=== PATIENT | male | born 1965 | race Caucasian/White ===

== ENCOUNTER → 2020-07-13 | Outpatient (CLI) | payer OTHER ==
[2020-07-13 15:39] LABS: HEMATOCRIT 43.3 % (37.9-51.0); HEMOGLOBIN 15.1 g/dL (13.5-17.0); MEAN CORPUSCULAR HEMOGLOBIN 34.1 pg (27.0-33.4); MEAN CORPUSCULAR VOLUME 98 fl (80-97); PLATELET COUNT 194 10^3/uL (150-450); RED BLOOD COUNT 4.44 10^6/uL (4.35-5.55); RED CELL DISTRIBUTION WIDTH 12.5 % (11.5-14.0); WHITE BLOOD COUNT 6.3 10^3/uL (4.0-10.5)
[2020-07-13 16:09] LABS: ALKALINE PHOSPHATASE 87 U/L (38-126); ANION GAP 10 (5-19); ASPARTATE AMINO TRANSFERASE 48 U/L (17-59); BILIRUBIN,DIRECT 0.4 mg/dL (0.0-0.4); BILIRUBIN,TOTAL 0.6 mg/dL (0.2-1.3); BLOOD UREA NITROGEN 14 mg/dL (7-20); CALCIUM 8.6 mg/dL (8.4-10.2); CARBON DIOXIDE 23 mmol/L (22-30); CHLORIDE 103 mmol/L (98-107); GLUCOSE 149 mg/dL (75-110); TOTAL PROTEIN 6.7 g/dL (6.3-8.2)
== END ==
LOC: OD 14:18
PROVIDERS: ATTEND Nurse Practitioner
DX: I10 Essential (primary) hypertension (principal); E78.2 Mixed hyperlipidemia; R35.0 Frequency of micturition
CPT/HCPCS: 36415; 80053; 84153; 84443; 85027

== ENCOUNTER 2020-08-21 10:18 | Emergency (ER) | payer OTHER ==
[2020-08-21] MEDS ORDERED: OXYCODONE-ACETAMINOPHEN 5-325 MG TABLET PO ONE (10:46)
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
--- NOTE | 2020-08-21 11:29 | RADIOLOGY REPORT (SQ) ---
EXAM DESCRIPTION: FEMUR RIGHT IMAGES COMPLETED DATE/TIME: 08/21/2020 11:12 am REASON FOR STUDY: wire through the thigh COMPARISON: None. NUMBER OF VIEWS: Two views. TECHNIQUE: Two radiographic images acquired of the right femur to include hip and knee in at least o ne projection. LIMITATIONS: None. Curvilinear metallic radiodensity overlies distal anterior thigh and femur FINDINGS: MINERALIZATION: Normal. BONES: No definite fracture. No worrisome bone lesions. SOFT TISSUES: Curvilinear metallic density measuring 4.5 mm in maximal diameter overlies distal anter ior thigh subcutaneous tissues and distal femur. OTHER: Vascular calcifications. IMPRESSION: Curvilinear metallic radiodensity overlies distal anterior thigh and femur compatible fo reign body. No fracture identified although cortical penetration suspected. TECHNICAL DOCUMENTATION: JOB ID: [id number] 2010 [employer]- All Rights Reserved Reading location - IP/workstation name: [email or web address]
--- NOTE | 2020-08-21 11:31 | RADIOLOGY REPORT (SQ) ---
EXAM DESCRIPTION: KNEE RIGHT 4 VIEWS IMAGES COMPLETED DATE/TIME: 08/21/2020 11:12 am REASON FOR STUDY: wire through the thigh COMPARISON: None. NUMBER OF VIEWS: Four views. TECHNIQUE: AP, lateral, and both oblique radiographic images acquired of the right knee. LIMITATIONS: None. FINDINGS: MINERALIZATION: Normal. BONES: No acute fracture or dislocation. No worrisome bone lesions. JOINT: No effusion. SOFT TISSUES: Curvilinear metallic radiodensity measuring 4.5 mm in diameter overlies distal anterior thigh and lateral femur on all projections. OTHER: Subcutaneous gas. Vascular calcifications. IMPRESSION: Curvilinear metallic radiodensity overlies distal thigh and femur on all projections com patible with foreign body. No fracture identified however cortical penetration suspected. TECHNICAL DOCUMENTATION: JOB ID: [id number] 2010 [employer]- All Rights Reserved Reading location - IP/workstation name: [email or web address]
[2020-08-21] MEDS ORDERED: DIPH/PERTUSS(ACELL)/TETANUS VAC/PF 0.5 ML SYR (>=10YO) IM ONE (12:43)
[2020-08-21] MEDS ORDERED: NORMAL SALINE 1000 ML 1,000 ML IV ONE (12:44)
[2020-08-21] MEDS ORDERED: MORPHINE SULFATE 10 MG/ML INJ IV ONE (12:44)
[2020-08-21] MEDS ORDERED: ONDANSETRON HCL INJ/PF 4 MG/2 ML SDV IV ONE ×2 (12:45→13:46)
[2020-08-21] MEDS ORDERED: PIPERACILLIN/TAZOBACTAM 3.375 GM VIAL IV ONE (12:48)
[2020-08-21 13:04] LABS: ABSOLUTE BASOPHILS # (AUTO) 0.1 10^3/uL (0.0-0.2); ABSOLUTE EOSINOPHILS # (AUTO) 0.2 10^3/uL (0.0-0.6); ABSOLUTE LYMPHOCYTES (AUTO) 1.9 10^3/uL (0.5-4.7); ABSOLUTE NEUT (AUTO) 5.2 10^3/uL (1.7-8.2); BASOPHILS % (AUTO) 1.3 % (0-2); EOSINOPHILS % (AUTO) 2.6 % (0-6); HEMOGLOBIN 14.7 g/dL (13.5-17.0); LYMPHOCYTES % (AUTO) 22.9 % (13-45); MEAN CORPUSCULAR HEMOGLOBIN 33.8 pg (27.0-33.4); MEAN CORPUSCULAR HGB CONC 35.1 g/dL (32.0-36.0); MEAN CORPUSCULAR VOLUME 96 fl (80-97); MONOCYTES % (AUTO) 11.6 % (3-13); PLATELET COUNT 171 10^3/uL (150-450); RED BLOOD COUNT 4.36 10^6/uL (4.35-5.55); RED CELL DISTRIBUTION WIDTH 12.7 % (11.5-14.0); SEGMENTED NEUTROPHILS % (AUTO) 61.6 % (42-78); TOTAL CELLS COUNTED % (AUTO) 100 %; WHITE BLOOD COUNT 8.4 10^3/uL (4.0-10.5)
[2020-08-21 13:27] LABS: ALBUMIN 4.2 g/dL (3.5-5.0); ALKALINE PHOSPHATASE 97 U/L (38-126); ANION GAP 9 (5-19); ASPARTATE AMINO TRANSFERASE 54 U/L (17-59); BILIRUBIN,DIRECT 0.3 mg/dL (0.0-0.4); BILIRUBIN,TOTAL 0.5 mg/dL (0.2-1.3); BLOOD UREA NITROGEN 21 mg/dL (7-20); CALCIUM 9.1 mg/dL (8.4-10.2); CARBON DIOXIDE 27 mmol/L (22-30); CHLORIDE 102 mmol/L (98-107); GLUCOSE 100 mg/dL (75-110); POTASSIUM 4.4 mmol/L (3.6-5.0); TOTAL PROTEIN 6.9 g/dL (6.3-8.2)
--- NOTE | 2020-08-21 13:43 | RADIOLOGY REPORT (SQ) ---
EXAM DESCRIPTION: CT RT LOWER EXTREMITY WITHOUT IMAGES COMPLETED DATE/TIME: 08/21/2020 1:12 pm REASON FOR STUDY: foreign body wire penetrated in bone COMPARISON: Same day radiograph TECHNIQUE: CT scan of the right femur performed without intravenous or oral contrast. Images review ed with soft tissue and bone windows. Reconstructed coronal and sagittal MPR images reviewed. All i mages stored on PACS. All CT scanners at this facility use dose modulation, iterative reconstruction, and/or weight based d osing when appropriate to reduce radiation dose to as low as reasonably achievable (ALARA). [facility]: Dose Right [facility]: CareDose [facility]: Dose Right [facility]: Teradose 4D [facility]: Xenith RADIATION DOSE: CT Rad equipment meets quality standard of care and radiation dose reduction techniq ues were employed. CTDIvol: 4.1 mGy. DLP: 98 mGy-cm. mGy. LIMITATIONS: None. FINDINGS: BONES: There is a curvilinear metallic density extending into the lateral femoral metaphys is by approximately 10 mm. No additional evidence of acute bony abnormality. No suspicious osseous lesions. SOFT TISSUES: Foreign body traverses lateral patellar retinaculum. Few punctate foci of subcutaneous gas. No significant hematoma. No close proximity to major neurovascular bundles. OTHER: No other significant finding. IMPRESSION: 1. Metallic linear foreign body extending to the lateral femoral metaphysis by approxim ately 10 mm. 2. No significant soft tissue hematoma. No close proximity to major neurovascular structures. TECHNICAL DOCUMENTATION: JOB ID: [id number] Quality ID # [id number]: Final reports with documentation of one or more dose reduction techniques (e.g., Au tomated exposure control, adjustment of the mA and/or kV according to patient size, use of iterative reconstruction technique) 2010 [employer]- All Rights Reserved Reading location - IP/workstation name: [email or web address]
[2020-08-21] MEDS ORDERED: HYDROMORPHONE HCL INJ/PF 2 MG/ML AMPULE IV ONE (13:45)
[2020-08-21] MEDS ORDERED: FENTANYL CITRATE INJ/PF 100 MCG/2 ML AMPUL IV ONE (14:09)
--- NOTE | 2020-08-21 15:02 | RADIOLOGY REPORT (SQ) ---
EXAM DESCRIPTION: KNEE RIGHT 2 VIEWS IMAGES COMPLETED DATE/TIME: 08/21/2020 2:50 pm REASON FOR STUDY: post FB removal COMPARISON: Same day CT, radiograph NUMBER OF VIEWS: Two views. TECHNIQUE: AP and lateral radiographic images acquired of the right knee. LIMITATIONS: None. FINDINGS: MINERALIZATION: Normal. BONES: No acute fracture or dislocation. No worrisome bone lesions. Interval removal of previous de scribed foreign body. JOINT: No effusion. SOFT TISSUES: Scattered subcutaneous gas. No retained foreign body. OTHER: No other significant finding. IMPRESSION: Interval removal of previously described foreign body. No retained radiopaque fragments . TECHNICAL DOCUMENTATION: JOB ID: [id number] 2010 [employer]- All Rights Reserved Reading location - IP/workstation name: [email or web address]
--- NOTE | 2020-08-21 15:54 | ER Document Report ---
Entered by AZUCENA PICKARD SCRIBE 08/21/20 1244 Acting as scribe for:NICHOL REDMOND MD ED Extremity Problem, Lower - General Chief Complaint: Leg Injury Stated Complaint: WIRE LODGED IN RIGHT LEG Time Seen by Provider: 08/21/20 10:37 Primary Care Provider: LORIN FERRELL FNP [Primary Care Provider] - Follow up as needed JUMA OWEN MD [ACTIVE STAFF] - Follow up in 1 week Mode of Arrival: Wheelchair Information source: Patient Notes: This 55 year old male patient presents to the ED today for evaluation of a piece of metal wire lodged into his right knee/thigh area that occurred this morning. Patient states that a "lawnmower went by and the wire kicked out by me while I was weed whacking." He reports that he tried to remove the wire prior to arrival without success. He reports 5/5 pain and states that his tetanus is not up to date. Last meal was a biscuit around 0800 this morning. No blood thinners. - Related Data Allergies/Adverse Reactions: No Known Allergies Allergy (Verified 08/21/20 11:10) Home Medications: atorvastatin Past Medical History - General Information source: Patient - Social History Smoking Status: Current Every Day Smoker Chew tobacco use (# tins/day): No Smoking Education Provided: No Frequency of alcohol use: Occasional Drug Abuse: None Lives with: Family Family History: Reviewed & Not Pertinent Patient has suicidal ideation: No Patient has homicidal ideation: No - Past Medical History Cardiac Medical History: Reports: Hx Hypercholesterolemia, Hx Hypertension Past Surgical History: Reports: None Review of Systems - Review of Systems Constitutional: No symptoms reported EENT: No symptoms reported Cardiovascular: No symptoms reported Respiratory: No symptoms reported Gastrointestinal: No symptoms reported Genitourinary: No symptoms reported Male Genitourinary: No symptoms reported Musculoskeletal: See HPI Skin: See HPI Hematologic/Lymphatic: No symptoms reported Neurological/Psychological: No symptoms reported -: Yes All other systems reviewed and negative Physical Exam - Vital signs Vitals: Temp Pulse Resp BP Pulse Ox 97.7 F 70 16 175/83 H 98 08/21/20 10:25 08/21/20 10:25 08/21/20 10:25 08/21/20 10:25 08/21/20 10:25 - General General appearance: Alert - HEENT Head: Normocephalic, Atraumatic Eyes: Normal Pupils: PERRL - Respiratory Respiratory status: No respiratory distress Chest status: Nontender Breath sounds: Normal Chest palpation: Normal - Cardiovascular Rhythm: Regular Heart sounds: Normal auscultation Murmur: No Friction rub: No Gallop: None auscultated - Abdominal Inspection: Obese Distension: No distension Bowel sounds: Normal Tenderness: Nontender - Abdomen soft Organomegaly: No organomegaly - Back Back: Normal, Nontender - Extremities General upper extremity: Normal inspection General lower extremity: Other - Neurological Neuro grossly intact: Yes Orientation: AAOx4 [place] Coma Scale Eye Opening: Spontaneous [place] Coma Scale Verbal: Oriented [place] Coma Scale Motor: Obeys Commands [place] Coma Scale Total: 15 - Psychological Associated symptoms: Normal affect, Normal mood - Skin Skin Temperature: Warm Skin Moisture: Dry Skin Color: Normal Course - Re-evaluation Re-evalutation: 08/21/20 15:41 Patient resting comfortably at this time. Still has some pain when fully flexing right knee. 08/21/20 15:48 Earlier today Case had been discussed with Dr. Owen who recommended that foreign body should be removed using needle drivers. And that Dr. Owen would follow-up with patient as an outpatient in 1 week. - Vital Signs Vital signs: Temp Pulse Resp BP Pulse Ox 98.0 F 58 L 16 167/88 H 99 08/21/20 16:12 08/21/20 16:12 08/21/20 16:12 08/21/20 16:12 08/21/20 16:12 08/21/20 15:42 Vital signs stable. Blood pressure is 156/91 patient does have history of hypertension. - Laboratory Result Diagrams: 08/21/20 12:48 08/21/20 12:48 Laboratory results interpreted by me: 08/21/20 08/21/20 12:48 12:48 [facility] 33.8 H BUN 21 H ALT 66 H Laboratories show mild elevation in ALT of 66 and a BUN 21 otherwise within normal range. - Diagnostic Test Radiology reviewed: Image reviewed, Reports reviewed Radiology results interpreted by me: 08/21/20 15:14 Femur X-Ray 08/21/20 10:46 IMPRESSION: Curvilinear metallic radiodensity overlies distal anterior thigh and femur compatible foreign body. No fracture identified although cortical penetration suspected. Knee X-Ray 08/21/20 10:46 IMPRESSION: Curvilinear metallic radiodensity overlies distal thigh and femur on all projections compatible with foreign body. No fracture identified however cortical penetration suspected. Lower Extremity CT 08/21/20 12:33 IMPRESSION: 1. Metallic linear foreign body extending to the lateral femoral metaphysis by approximately 10 mm. 2. No significant soft tissue hematoma. No close proximity to major neurovascular structures. Knee X-Ray 08/21/20 14:34 IMPRESSION: Interval removal of previously described foreign body. No retained radiopaque fragments. 08/21/20 15:42 Plain film x-ray shows a curvilinear metal radiodensity in the distal anterior thigh and femur consistent with foreign body. There was no fracture noted. Knee x-ray shows same discussion of a metallic radiodensity curvilinear foreign body distal femur again no fracture noted however cortical penetration was suspected. CT scan of the right lower extremity show that this foreign metallic body extended into the lateral femoral metaphysis by approximately 10 mm. - Consults Dr. Juma Owen, Orthopedist Time consulted: 14:00 Procedures - Additional Procedures Foreign Body Removal Time performed: 14:30 Notes: 08/21/20 15:39 Foreign body removal right knee area. Area was cleaned with Betadine around the foreign body wire that was impaled from the lateral direction to the lower femur just above the knee. This wire metal wire was impaled into the lower femur about 10 mm into the cortex. Patient was given IV fentanyl for sedation. Patient tolerated procedure well and was able to remove completely the metal wire. ((Post read post removal x-ray shows no foreign body still present.) Using a longitudinal traction countertraction was able to remove the foreign body wire with nail drivers. Area was then irrigated with saline. Patient able to move his knee flex and extend his knee at this time. Neurovascular motor intact. No complications noted at this time. 08/21/20 15:41 Discharge - Discharge Clinical Impression: Acute foreign body of right thigh, Foreign body impaled right lower femur, Puncture wound of right lower leg with complication Condition: Stable Disposition: HOME, SELF-CARE Additional Instructions: Puncture Wound You have a puncture wound. Because these wounds often penetrate deeply beneath the skin, you must observe them carefully for complications. The wound has been examined for retained foreign material and for damage to tendons and nerves. The area should be rested and elevated for 24 hours. Then you can use the injured part -- if moving it is painfree. Punctures of the hand or foot may require splinting or crutches. The dressing should be changed daily until the wound is healed. Watch for signs of infection. Call the doctor immediately if redness, swelling, warmth, increasing pain, or wound drainage occur. If you develop numbness, persistent bleeding, or inability to move the injured area, please return for prompt re-evaluation. As you know a dirty wire was then pale and embedded into your lower right femur. This may cause infection which we are putting you on noticed to be certain to watch out for. You have been placed on antibiotics and pain medications. You are asked to change the dressing on a daily basis and apply [id number] Neosporin ointment and bandage dressing with Migue wrap. Follow-up with Dr. Owen as indicated. However if any signs of infection occur do not hesitate to return to the emergency department or follow-up with Dr. Owen if that is co nvenient. Prescriptions: Amoxicillin/Potassium Clav [Augmentin 875-125 Tablet] 1 tab PO BID #20 tab Ibuprofen [Ibu] 800 mg PO TID PRN 7 Days #21 tablet PRN Reason: prn pain/swelling/fever Hydrocodone/Acetaminophen [[place] 10-325 mg Tablet] 1 tab PO TID PRN #10 tablet PRN Reason: prn severe pain Forms: Return to Work Referrals: LORIN FERRELL FNP [Primary Care Provider] - Follow up as needed JUMA OWEN MD [ACTIVE STAFF] - Follow up in 1 week I personally performed the services described in the documentation, reviewed and edited the documentation which was dictated to the scribe in my presence, and it accurately records my words and actions.
[2020-08-21 16:13] VITALS: BP 167/88
== END 2020-08-21 16:29 | disposition home or self-care (01) ==
LOC: ER 10:18
DX: S71.141A Puncture wound with foreign body, right thigh, initial encounter (principal); S81.831A Puncture wound without foreign body, right lower leg, initial encounter; W45.8XXA Other foreign body or object entering through skin, initial encounter; Y93.H2 Activity, gardening and landscaping; R74.01 Elevation of levels of liver transaminase levels; F17.200 Nicotine dependence, unspecified, uncomplicated; I10 Essential (primary) hypertension; E78.00 Pure hypercholesterolemia, unspecified; Z79.899 Other long term (current) drug therapy; Z23 Encounter for immunization
CPT/HCPCS: 99285; 96361; 90471; 96375; 96365; 87070; 73552; 73560; 73564; 73700; 90715; J3010; J2270; J1170; J2405; J7030; J2543